=== PATIENT | male | born 1950 | race Caucasian/White ===

== ENCOUNTER 2022-04-09 08:48 | Outpatient (CLI) | payer MEDICARE, MEDICAID, SELFPAY ==
--- NOTE | ~2022-04-09 | PE_ITS ---
EXAMINATION: PET skull to mid thigh DATE: 04/09/2022 10:27 INDICATION: Multiple lung nodules TECHNIQUE: Blood glucose level was 118 mg/dL. 11.748 mCi of 18-fluorodeoxyglucose (18-FDG) was admini stered i.v. Low dose computed tomography (CT) images were acquired from the base of the brain to the proximal thighs for attenuation correction and anatomic localization. Positron emission tomography (P ET) images were acquired in the same distribution beginning 55 minutes after injection. Images includ ing fused PET/CT images were reconstructed in axial, coronal, and sagittal planes. Automated exposure control technique was employed. The dose-length product was 801.50mGy-cm. COMPARISON: None FINDINGS: Head/neck: There is diffuse increased mucosal FDG uptake at the periphery of the completely opacified left maxil eleno sinus consistent with likely acute sinusitis. Small focus of prominent FDG uptake with maximal S UV of 9.8 at the posterior most left maxillary molar with suggestion of an associated dental caries. There is increased activity in the oral and nasal cavities, palatine tonsils, laryngeal muscles and o cular muscles without CT correlate, likely physiologic. No pathologically enlarged cervical lymphaden opathy or other suspicious foci of increased FDG uptake in the visualized head or neck. Chest: 6 mm nodule at the junction of the right major and minor fissures, potentially an intrafissural lymph node without corresponding FDG uptake. Additional 5 mm thin lenticular likely intrafissural lymph no de along the left major fissure also without evident FDG uptake. Mild lingular atelectasis at the cau radha aspect of the lingula. No other suspicious pulmonary nodules, pneumonia or pleural effusion. Hear t size is normal. No pericardial effusion. Thoracic aorta is normal in caliber. No pathologically enl arged or FDG avid thoracic lymphadenopathy. Abdomen/pelvis/proximal thighs: Physiologic renal accumulation and excretion of FDG activity in the kidneys, bladder and along portio ns of ureters. Normal degree and heterogenous pattern of increased uptake throughout the liver withou t radiologic correlate or dominant FDG avid lesion. The gallbladder, pancreas, spleen and bilateral a drenal glands are normal. Mild uptake scattered throughout the bowels without radiologic correlate, a lso likely physiologic. There are few scattered colonic diverticula without adjacent inflammatory christine nge to suggest diverticulitis. Normal appendix. Mild. Likely physiologic uptake associated with a gaston or supraumbilical ventral hernia mesh repair without evident associated abnormal nodular soft tissue. No other abnormal foci of increased FDG uptake or pathologically enlarged lymphadenopathy in the abd omen, pelvis or proximal thighs. Musculoskeletal: Mild likely synovial uptake at the bilateral acromioclavicular and glenohumeral joints. 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 No other suspicious lytic, blastic or FDG avid bone lesions. IMPRESSION: 1. No increased uptake associated with a couple 5-6 mm nodules along the left and right major fissure s most likely representing intrafissural lymph nodes. Although reassuring, sensitivity for FDG uptake is decreased for subcentimeter nodules and lateral malignant nodules demonstrated significantly incr eased FDG uptake. Recommend correlation with any prior outside imaging and 12 month follow-up low-dos e noncontrast chest CT. 2. Complete opacification of left maxillary sinus with prominent peripheral mucosal FDG uptake sugges ting acute sinusitis. 3. Increased uptake associated with a likely dental Dagmar at the posterior most left maxillary molar. Consider dental referral. Reviewed, dictated and finalized at location A.
[2022-04-09 09:09] LABS: Glucose Point of Care 118 mg/dl (65-105)
== END 2022-04-09 08:49 | disposition home or self-care (01) ==
PROVIDERS: PCP Family Medicine; Visit Provider Internal Medicine
DX: R91.8 Other nonspecific abnormal finding of lung field (principal)
CPT/HCPCS: 78815; A9552

== ENCOUNTER 2024-10-06 12:52 | Outpatient (CLI) | payer MEDICARE, MEDICAID, SELFPAY ==
--- OUTSIDE RECORDS SUMMARY | 2024-10-06 15:14 | XMS_ITS | CONTINUITY OF CARE DOCUMENT ---
Author Name kae pal Address Unknown Organization [facility] Address [address] [place] [address] Phone [phone] Care Team Providers Care Concession Attendant Name Role Phone Eliana Kenny MD Unavailable Jakob Arndt MD Unavailable Jakob Arndt MD Unavailable [phone] INSURANCE PROVIDERS Payer name Policy type / Coverage type [place] [employer] Medicaid 2 [id number] [facility] [id number]
--- OUTSIDE RECORDS SUMMARY | 2024-10-06 15:15 | XMS_ITS | Clinical Summary ---
Author Organization [facility] Address [address], [address] [address] Phone Care Team Providers Care Shark Biologist Name Role Phone Jhonatan Noble MD Primary Care Provider Medications polyethylene glycol (MIRALAX) Powder Mix the entire bottle with 64 oz of a clear liquid. Use as directed by the office for colonoscopy prep. 255 g 0 6 Active Social History Tobacco Use Types Packs/Day Years Used Date Smoking Tobacco: Never Assessed Sex and Gender Information Value Date Recorded Sex Assigned at Not on file Legal Sex Male 9:08 AM CDT Gender Identity Not on file Sexual Orientation Not on file Plan of Treatment Health Maintenance Due Date Last Done Comments Hepatitis C Virus (HCV) Screening 1950 TdaP Immunization 1950 Cologuard 2001 Immunochemical Fecal Occult Blood 2001 Pneumococcal Immunization (5 0+ years) (1 of 1 - PCV) 2001 Zoster Immunization (1 of 2) 2001 Influenza Immunization (#1) 2023 SARS-COV-2 Immunization ( season) 2023 Colonoscopy 01/31/2026 02/01/2016 Colorectal Cancer Screening 01/31/2026 Respiratory Syncytial Virus (RSV) Immunization (Adult) (1 - 1-dose 75+ series) 2026 Hepatitis B Immunization Aged Out No longer eligible based on patient's age to complete this topic Meningococcal Immunization (ACWY) Aged Out No longer eligible based on patient's age to complete this topic Rotavirus Immunization Aged Out No lo nger eligible based on patient's age to complete this topic Procedures Procedure Name Priority Date/Time Associated Diagnosis Comments COLONOSCOPY Routine 02/01/2016 from Last 3 Months or Most Recently Relevant to Health Maintenance Results * COLONOSCOPY (02/01/2016) us Jhonatan Noble MD PROCEDURE/MINOR SURGICAL ORD ERABLES Final Result from Last 3 Months or Most Recently Relevant to Health Maintenance Care Teams Shark Biologist Relationship Specialty Start Date End Date Jhonatan Noble MD [address] [place] [id number] PCP - General Family Medicine 02/02/16
--- OUTSIDE RECORDS SUMMARY | 2024-10-06 15:15 | XMS_ITS | Data Portability ---
Author Organization [facility] [employer], Main Office Address [address] [place] [address] Care Team Providers Care Commercial Loan Assistant Name Role Phone LISA HERNADEZ Primary Care Provider LISA HERNADEZ Referring Provider [phone] Assessment No assessment recorded. Plan of Treatment Reminders Order Date Submit Date Provider Last Modified By Organization Details Last Modified Time Details Appointments Any 15 2024 01:30P Yang Hernadez MD Not available Not available Not available Lab PSA, serum or plasma 2024 025 [facility] (Lab), [address] [place], [address], 10/05/2024 13:18:03 CBC w/ auto diff 2024 025 [facility] (Lab), [address] [place], [address], 10/05/2024 13:18:03 CMP, serum or plasma 2024 025 [facility] (Lab), [address] [place], [address], 10/05/2024 13:18:03 lipid panel, serum 2024 025 [facility] (Lab), [address] [place], [address], 10/05/2024 13:18:02 CMP, serum or plasma 2023 024 [facility] (Lab), [address] [place], [address], 11/24/2023 19:34:49 lipid panel, serum 2023 024 [facility] (Lab), [address] [place], [address], 11/24/2023 19:34:53 CBC w/ auto diff 2023 024 [facility] (Lab), [address] [place], [address], 11/24/2023 19:31:05 PSA, serum or plasma 2023 024 [facility] (Lab), [address] [place], [address], 07/16/2023 23:48:02 CBC w/ auto diff 2023 024 [facility] (Lab), [address] [place], [address], 07/16/2023 19:43:51 Referral None recorded. Procedures upper endoscopy procedure (EGD) (PROC) - Please call patient to schedule an appointme nt. Thank you. 2024 025 [facility], [address], [address], [place], [address], 09/30/2024 11:05:22 upper endoscopy procedure (EGD) (PROC) 2023 024 kristie Valenzuela MD, [address] [facility], [address], [place], [address], 12/22/2023 08:09:41 upper endoscopy procedure (EGD) (PROC) 2023 024 kristie Valenzuela MD, [address], [facility] [address], [place], [address], 08/13/2023 07:57:40 Surgeries None recorded. Imaging PFT, complete - Please call patient to schedule. [address] (Resp Services), [address] [place] [address] [address], [address], 09/27/2024 17:22:24 LDCT, chest, for lung cancer screening - NO auth required 2023 024 [facility] ([facility]), [address] [place], [address], 12/02/2023 11:00:51 LDCT, chest, for lung cancer screening 2023 024 Not available 05/25/2024 09:42:12 LDCT, chest, for lung cancer screening [address] [facility] ([facility] Scheduling), [address] [place], [address], 01/19/2024 15:52:30 Medication Orders Breztri Aerospher e 160 mcg-9mcg- 4.8mcg/ac tuation HFA aerosol inhaler 2024 025 [facility] [address] In [facility], [address] [place] [address], [address], 09/23/2024 15:22:12 albuterol sulfate HFA 90 mcg/actua tion aerosol inhaler 2024 025 [facility] [address] In [facility], [address] [place] [address], [address], 09/23/2024 15:22:11 Bre[employer]tri Aerosp[employer] 160 mcg-9mcg- 4.8mcg/ac tuation HFA aerosol inhaler 2024 025 [facility] [address] In [facility], [address] [place] [address], [address], 05/25/2024 12:33:14 albuterol sulfate HFA 90 mcg/actua tion aerosol inhaler 2024 025 [facility] [address], [address], 05/25/2024 12:33:14 metoprolo l succinate ER 50 mg tablet,ex tended release 24 hr 2022 023 [facility] [address], [address], 03/17/2023 10:21:17 bupropion HCl XL 150 mg 24 hr tablet, extended release 2022 023 [facility] [address], [address], 03/17/2023 10:21:17 Patient TargetsNo targets recorded. Patient Instructions Encounter Date Encounter Id Patient Instructions Last Modified By Organization Details Last Modified Time 11/24/2023 [id number] dementia rating scale-2* [id number] Not available 11/24/2023 14:07:12 alcohol misuse* Not available 11/24/2023 17:00:18 depression screening* Not available 11/24/2023 17:00:19 multi-dimensiona l health assessment questionnaire* Not available 11/24/2023 17:00:18 advance care planning: care instructions Not available 11/24/2023 17:00:18 advance directiv es: care instructions Not available 11/24/2023 17:00:18 [place] Advance Directives Not available 11/24/2023 17:00:19 Personalized [facility] lt Plan and Screening Recommendations Advance Directives - Do you have one? No You have indicated that you are capable of preparing your advance care directive Advance Directives - Do we have your advance directive on file in your health record? No, please bring in a copy at your earliest convenience Primary Prevention/Interven tion (prevents or decreases the chance of common diseases from occurring) Smoking Risk: Smoker Continue to consider stopping smoking and call if we can assist you Alcohol Misuse Screening: Negative Weight: Overweight try to lose 10% of your body weight Physical activity: Need more exercise/physical activity minimum of 10-20 minutes of activity that causes mild breathlessness/day Nutrition: Average Refer to attached handout Heart-Healthy Diet: After Your Visit Fall Risk (screened today): Low Refer to attached handout Preventing Falls: After your Visit Vaccines Pneumococcal: No further needed Influenza: Your next one in the fall of this year Chronic Disease Risks Stroke: 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 Colon Cancer Screening: Colonoscopy Date Screening Last Performed: states done in last 5 years Eye Disease Screening: Recommended today Dementia Risk: Low I have no recommendations Depression Screening: Negative [id number] Not available 11/24/2023 14:20:37 09/23/2024 [id number] complete PFT* - Please call patient to schedule. TONY [id number] per payor portal, ref #[id number]. ATHENAFAX Not available 09/27/2024 13:20:38 Reason for Referral None Reported. Results Created Date Observation Date Name Description Value Unit Range Abnormal Flag Note LastModifiedBy Organization Detail LastModifiedTime 07/16/19 24 07/16/2023 CBC/C OMPLE TE BLD COUNT W/DIF F white blood cells 6.1 x10'3 /uL 4.2-10 .8 Not Available [facility] (Lab) [address] [place], [address], 07/16/2023 19:43:51 07/16/19 24 07/16/2023 CBC/C OMPLE TE BLD COUNT W/DIF F red blood cells 4.81 x10'6 /uL 4.10-5 .80 Not Available [facility] (Lab) [address] [place], [address], 07/16/2023 19:43:51 07/16/19 24 07/16/2023 CBC/C OMPLE TE BLD COUNT W/DIF F hemoglobin 14.9 g/dL 13.2-1 7.0 Not Available [facility] (Lab) [address] [place], [address], 07/16/2023 19:43:51 07/16/19 24 07/16/2023 CBC/C OMPLE TE BLD COUNT W/DIF F hematocrit 43.2 % 39.3-5 0.0 Not Available [facility] (Lab) [address] [place], [address], 07/16/2023 19:43:51 07/16/19 24 07/16/2023 CBC/C OMPLE TE BLD COUNT W/DIF F mean red cell volume 89.8 fL 80.0-9 7.0 Not Available [facility] (Lab) [address] [place], [address], 07/16/2023 19:43:51 07/16/19 24 07/16/2023 CBC/C OMPLE TE BLD COUNT W/DIF F mean red cell hemoglobin 31.0 pg 27.0-3 3.0 Not Available [facility] (Lab) [address] [place], [address], 07/16/2023 19:43:51 07/16/19 24 07/16/2023 CBC/C OMPLE TE BLD COUNT W/DIF F mean RBC HGB concentratio n 34.5 g/dL 31.0-3 6.0 Not Available [facility] (Lab) [address] [place], [address], 07/16/2023 19:43:51 07/16/19 24 07/16/2023 CBC/C OMPLE TE BLD COUNT W/DIF F red cell distribution width 13.6 % 11.8-1 5.5 Not Available [facility] (Lab) [address] [place], [address], 07/16/2023 19:43:51 07/16/19 24 07/16/2023 CBC/C OMPLE TE BLD COUNT W/DIF F platelets 155 x10'3 /uL 150-40 0 Not Available [facility] (Lab) [address] [place], [address], 07/16/2023 19:43:51 07/16/19 24 07/16/2023 CBC/C OMPLE TE BLD COUNT W/DIF F mean platelet volume 9.6 fL 9.0-12 .4 Not Available [facility] (Lab) [address] [place], [address], 07/16/2023 19:43:51 07/16/19 24 07/16/2023 CBC/C OMPLE TE BLD COUNT W/DIF F neutrophils 56.9 % 39.0-7 2.0 Not Available [facility] (Lab) [address] [place], [address], 07/16/2023 19:43:51 07/16/19 24 07/16/2023 CBC/C OMPLE TE BLD COUNT W/DIF F lymphocytes 31.1 % 16.0-4 7.0 Not Available [facility] (Lab) [address] [place], [address], 07/16/2023 19:43:51 07/16/19 24 07/16/2023 CBC/C OMPLE TE BLD COUNT W/DIF F monocytes 8.7 % 5.0-12 .0 Not Available [facility] (Lab) [address] [place], [address], 07/16/2023 19:43:51 07/16/19 24 07/16/2023 CBC/C OMPLE TE BLD COUNT W/DIF F eosinophils 2.0 % 1.0-7. 0 Not Available [facility] (Lab) [address] [place], [address], 07/16/2023 19:43:51 07/16/19 24 07/16/2023 CBC/C OMPLE TE BLD COUNT W/DIF F basophils 1.0 % 0.0-2. 0 Not Available [facility] (Lab) [address] [place], [address], 07/16/2023 19:43:51 07/16/19 24 07/16/2023 CBC/C OMPLE TE BLD COUNT W/DIF F immature granulocytes 0.3 % 0.00-0 .50 Not Available [facility] (Lab) [address] [place], [address], 07/16/2023 19:43:51 07/16/19 24 07/16/2023 CBC/C OMPLE TE BLD COUNT W/DIF F neutrophils, absolute count 3.47 x10'3 /uL 1.5-8. 0 Not Available [facility] (Lab) [address] [place], [address], 07/16/2023 19:43:51 07/16/19 24 07/16/2023 CBC/C OMPLE TE BLD COUNT W/DIF F lymphocytes, absolute count 1.90 x10'3 /uL 1.07-3 .43 Not Available [facility] (Lab) [address] [place], [address], 07/16/2023 19:43:51 07/16/19 24 07/16/2023 CBC/C OMPLE TE BLD COUNT W/DIF F monocytes, absolute count 0.53 x10'3 /uL 0.29-0 .99 Not Available [facility] (Lab) [address] [place], [address], 07/16/2023 19:43:51 07/16/19 24 07/16/2023 CBC/C OMPLE TE BLD COUNT W/DIF F eosinophils, absolute count 0.12 x10'3 /uL 0.02-0 .53 Not Available [facility] (Lab) [address] [place], [address], 07/16/2023 19:43:51 07/16/19 24 07/16/2023 CBC/C OMPLE TE BLD COUNT W/DIF F basophils, absolute count 0.06 x10'3 /uL 0.01-0 .08 Not Available [facility] (Lab) [address] [place], [address], 07/16/2023 19:43:51 07/16/19 24 07/16/2023 CBC/C OMPLE TE BLD COUNT W/DIF F immature granulocytes ,absolute 0.02 x10'3 /uL 0.00-0 .05 Not Available [facility] (Lab) [address] [place], [address], 07/16/2023 19:43:51 07/16/19 24 07/16/2023 CBC/C OMPLE TE BLD COUNT W/DIF F nucleated red blood cells 0.0 % -0 Not Available [facility] (Lab) [address] [place], [address], 07/16/2023 19:43:51 07/16/19 24 07/16/2023 CBC/C OMPLE TE BLD COUNT W/DIF F NRBC# 0.00 x10'3 /uL Not Available [facility] (Lab) [address] [place], [address], 07/16/2023 19:43:51 07/16/19 24 07/16/2023 PSA, TOTAL PSA, total 1.25 NG/mL 0.00-4 .00 Not Available [facility] (Lab) [address] [place], [address], 07/16/2023 20:49:04 11/24/19 24 11/24/2023 CBC/C OMPLE TE BLD COUNT W/DIF F white blood cells 7.0 x10'3 /uL 4.2-10 .8 Not Available [facility] (Lab) [address] [place], [address], 11/24/2023 19:31:05 11/24/19 24 11/24/2023 CBC/C OMPLE TE BLD COUNT W/DIF F red blood cells 4.84 x10'6 /uL 4.10-5 .80 Not Available [facility] (Lab) [address] [place], [address], 11/24/2023 19:31:05 11/24/19 24 11/24/2023 CBC/C OMPLE TE BLD COUNT W/DIF F hemoglobin 15.0 g/dL 13.2-1 7.0 Not Available [facility] (Lab) [address] [place], [address], 11/24/2023 19:31:05 11/24/19 24 11/24/2023 CBC/C OMPLE TE BLD COUNT W/DIF F hematocrit 44.5 % 39.3-5 0.0 Not Available [facility] (Lab) [address] [place], [address], 11/24/2023 19:31:05 11/24/19 24 11/24/2023 CBC/C OMPLE TE BLD COUNT W/DIF F mean red cell volume 91.9 fL 80.0-9 7.0 Not Available [facility] (Lab) [address] [place], [address], 11/24/2023 19:31:05 11/24/19 24 11/24/2023 CBC/C OMPLE TE BLD COUNT W/DIF F mean red cell hemoglobin 31.0 pg 27.0-3 3.0 Not Available [facility] (Lab) [address] [place], [address], 11/24/2023 19:31:05 11/24/19 24 11/24/2023 CBC/C OMPLE TE BLD COUNT W/DIF F mean RBC HGB concentratio n 33.7 g/dL 31.0-3 6.0 Not Available [facility] (Lab) [address] [place], [address], 11/24/2023 19:31:05 11/24/19 24 11/24/2023 CBC/C OMPLE TE BLD COUNT W/DIF F red cell distribution width 14.6 % 11.8-1 5.5 Not Available [facility] (Lab) [address] [place], [address], 11/24/2023 19:31:05 11/24/19 24 11/24/2023 CBC/C OMPLE TE BLD COUNT W/DIF F platelets 166 x10'3 /uL 150-40 0 Not Available [facility] (Lab) [address] [place], [address], 11/24/2023 19:31:05 11/24/19 24 11/24/2023 CBC/C OMPLE TE BLD COUNT W/DIF F mean platelet volume 9.9 fL 9.0-12 .4 Not Available [facility] (Lab) [address] [place], [address], 11/24/2023 19:31:05 11/24/19 24 11/24/2023 CBC/C OMPLE TE BLD COUNT W/DIF F neutrophils 63.6 % 39.0-7 2.0 Not Available [facility] (Lab) [address] [place], [address], 11/24/2023 19:31:05 11/24/19 24 11/24/2023 CBC/C OMPLE TE BLD COUNT W/DIF F lymphocytes 24.2 % 16.0-4 7.0 Not Available [facility] (Lab) [address] [place], [address], 11/24/2023 19:31:05 07/29/20 24 11/24/2023 CBC/C OMPLE TE BLD COUNT W/DIF F monocytes 9.5 % 5.0-12 .0 Not Available [facility] (Lab) [address] [place], [address], 11/24/2023 19:31:05 11/24/19 24 11/24/2023 CBC/C OMPLE TE BLD COUNT W/DIF F eosinophils 1.6 % 1.0-7. 0 Not Available [facility] (Lab) [address] [place], [address], 11/24/2023 19:31:05 11/24/1911/24/2023 CBC/C OMPLE TE BLD COUNT W/DIF F basophils 1.0 % 0.0-2. 0 Not Available [facility] (Lab) [address] [place], [address], 11/24/2023 19:31:05 11/24/1911/24/2023 CBC/C OMPLE TE BLD COUNT W/DIF F immature granulocytes 0.1 % 0.00-0 .50 Not Available [facility] (Lab) [address] [place], [address], 11/24/2023 19:31:05 11/24/19 24 11/24/2023 CBC/C OMPLE TE BLD COUNT W/DIF F neutrophils, absolute count 4.46 x10'3 /uL 1.5-8. 0 Not Available [facility] (Lab) [address] [place], [address], 11/24/2023 19:31:05 11/24/19 24 11/24/2023 CBC/C OMPLE TE BLD COUNT W/DIF F lymphocytes, absolute count 1.70 x10'3 /uL 1.07-3 .43 Not Available [facility] (Lab) [address] [place], [address], 11/24/2023 19:31:05 11/24/19 24 11/24/2023 CBC/C OMPLE TE BLD COUNT W/DIF F monocytes, absolute count 0.67 x10'3 /uL 0.29-0 .99 Not Available [facility] (Lab) [address] [place], [address], 11/24/2023 19:31:05 11/24/19 24 11/24/2023 CBC/C OMPLE TE BLD COUNT W/DIF F eosinophils, absolute count 0.11 x10'3 /uL 0.02-0 .53 Not Available [facility] (Lab) [address] [place], [address], 11/24/2023 19:31:05 11/24/19 24 11/24/2023 CBC/C OMPLE TE BLD COUNT W/DIF F basophils, absolute count 0.07 x10'3 /uL 0.01-0 .08 Not Available [facility] (Lab) [address] [place], [address], 11/24/2023 19:31:05 11/24/19 24 11/24/2023 CBC/C OMPLE TE BLD COUNT W/DIF F immature granulocytes ,absolute 0.01 x10'3 /uL 0.00-0 .05 Not Available [facility] (Lab) [address] [place], [address], 11/24/2023 19:31:05 11/24/19 24 11/24/2023 CBC/C OMPLE TE BLD COUNT W/DIF F nucleated red blood cells 0.0 % -0 Not Available [facility] (Lab) [address] [place], [address], 11/24/2023 19:31:05 11/24/19 24 11/24/2023 CBC/C OMPLE TE BLD COUNT W/DIF F NRBC# 0.00 x10'3 /uL Not Available [facility] (Lab) [address] [place], [address], 11/24/2023 19:31:05 11/24/19 24 11/24/2023 COMPR EHENS BERTA METAB OLIC PANEL sodium 137 mmol/ L 137-14 5 Not Available [facility] (Lab) [address] [place], [address], 11/24/2023 19:34:49 11/24/19 24 11/24/2023 COMPR EHENS BERTA METAB OLIC PANEL potassium 4.1 mmol/ L 3.5-5. 1 Not Available [facility] (Lab) [address] [place], [address], 11/24/2023 19:34:49 11/24/19 24 11/24/2023 COMPR EHENS BERTA METAB OLIC PANEL chloride 110 mmol/ L 98-107 high Not Available [facility] (Lab) [address] [place], [address], 11/24/2023 19:34:49 11/24/19 24 11/24/2023 COMPR EHENS BERTA METAB OLIC PANEL carbon dioxide 24 mmol/ L 22-30 Not Available [facility] (Lab) [address] [place], [address], 11/24/2023 19:34:49 11/24/19 24 11/24/2023 COMPR EHENS BERTA METAB OLIC PANEL anion gap 7.1 mmol/ L 14-22 low Not Available [facility] (Lab) [address] [place], [address], 11/24/2023 19:34:49 11/24/19 24 11/24/2023 COMPR EHENS BERTA METAB OLIC PANEL glucose 93 mg/dL 70-99 Not Available [facility] (Lab) [address] [place], [address], 11/24/2023 19:34:49 11/24/19 24 11/24/2023 COMPR EHENS BERTA METAB OLIC PANEL BUN 9 mg/dL 8-19 Not Available [facility] (Lab) [address] [place], [address], 11/24/2023 19:34:49 11/24/19 24 11/24/2023 COMPR EHENS BERTA METAB OLIC PANEL creatinine 0.90 mg/dL 0.66-1 .25 Not Available [facility] (Lab) [address] [place], [address], 11/24/2023 19:34:49 11/24/19 24 11/24/2023 COMPR EHENS BERTA METAB OLIC PANEL GFR >60 Refer ence Range : [place] ge GFR Healt hy Adult : >60 mL/mi n/1.7 3 m2 Chron ic Kidne y Disea se: 15-60 mL/mi n/1.7 3 m2 Kidne y Failu re: <15/m L/min /1.73 m2 www.n iddk. nih.g ov The MDRD study equat ion has not been valid ated in child jennifer <18 years of age; pregn ant women ; the elder ly >85 years of age; or in some racia l or ethni c subgr oups, such as [employer]. Outsi de the valid ated gina eters , estim ated GFR is less accur ate, requi ring clini phu judgm ent on a case- by-ca se basis . Clini phu inter preta tion for other races and ages must be made by the clini jose l. The MDRD study equat ion has not been valid ated for the evalu ation of serum creat inine relat ed to nutri luz l statu s or medic ation usage . For perso ns <18 years of age, a pedia tric GFR calcu lator is avail able on the F websi te: https ://citlaly biggs.o jason/pr ofess ional s/kdo qi/gf r_cal culat or Not Available [facility] (Lab) [address] [place], [address], 11/24/2023 19:34:49 11/24/19 24 11/24/2023 COMPR EHENS BERTA METAB OLIC PANEL alkaline phosphatase 108 U/L 38-126 Not Available [facility] (Lab) [address] [place], [address], 11/24/2023 19:34:49 11/24/19 24 11/24/2023 COMPR EHENS BERTA METAB OLIC PANEL alanine aminotransfe rase 26 U/L 0-50 Not Available [facility] (Lab) [address] [place], [address], 11/24/2023 19:34:49 11/24/19 24 11/24/2023 COMPR EHENS BERTA METAB OLIC PANEL aspartate aminotransfe rase 27 U/L 15-46 Not Available [facility] (Lab) [address] [place], [address], 11/24/2023 19:34:49 11/24/19 24 11/24/2023 COMPR EHENS BERTA METAB OLIC PANEL bilirubin, total 1.10 mg/dL 0.20-1 .30 Not Available [facility] (Lab) [address] [place], [address], 11/24/2023 19:34:49 11/24/19 24 11/24/2023 COMPR EHENS BERTA METAB OLIC PANEL calcium 9.1 mg/dL 8.4-10 .2 Not Available [facility] (Lab) [address] [place], [address], 11/24/2023 19:34:49 11/24/19 24 11/24/2023 COMPR EHENS BERTA METAB OLIC PANEL total protein 7.1 g/dL 6.3-8. 2 Not Available [facility] (Lab) [address] [place], [address], 11/24/2023 19:34:49 11/24/19 24 11/24/2023 COMPR EHENS BERTA METAB OLIC PANEL albumin 4.0 g/dL 3.0-4. 4 Not Available [facility] (Lab) [address] [place], [address], 11/24/2023 19:34:49 11/24/19 24 11/24/2023 COMPR EHENS BERTA METAB OLIC PANEL globulin 3.1 g/dL 2.6-4. 2 Not Available [facility] (Lab) [address] [place], [address], 11/24/2023 19:34:49 11/24/19 24 11/24/2023 COMPR EHENS BERTA METAB OLIC PANEL A/G ratio 1.3 ratio 1.0-2. 0 Not Available [facility] (Lab) [address] [place], [address], 11/24/2023 19:34:49 11/24/19 24 11/24/2023 LIPID PANEL cholesterol 184 mg/dL 140-19 9 NIH ABELARDO NSUS RECOM MENDA TION FOR POLINA STERO L: ADULT CHILD LOW RISK: <200 <170 BORDE RLINE : <200- 239 ----- HIGH RISK: >240 >200 Not Available [facility] (Lab) [address] [place], [address], 11/24/2023 19:34:53 11/24/19 24 11/24/2023 LIPID PANEL triglyceride s 195 mg/dL 0-150 high NIH ABELARDO NSUS REPOR T RECOM MENDA TION FOR TRIGL YCERI TEJAS: ADULT CHILD LOW RISK: <150 ----- BODER LINE: 150-1 99 ----- HIGH RISK: >200 ----- Not Available [facility] (Lab) [address] [place], [address], 11/24/2023 19:34:53 11/24/19 24 11/24/2023 LIPID PANEL HDL cholesterol 57 mg/dL 40- Not Available [facility] (Lab) [address] [place], [address], 11/24/2023 19:34:53 11/24/19 24 11/24/2023 LIPID PANEL LDL cholesterol, calculated 88 mg/dL 0-130 NIH ABELARDO NSUS REPOR T RECOM MENDA TIONS FOR LDL: ADULT CHILD LOW RISK <130 <110 (OPTI MAL LDL) <100 ----- BORDE RLINE : 130-1 59 ----- HIGH RISK: >160 >130 A TRIGL YCERI DE RESUL T >400 INVAL IDATE S THE CALCU LATIO N FOR LDL FRACT IONAT ION - THE LDL RESUL T WILL NOT BE REPOR PATRICK. Not Available [facility] (Lab) [address] [place], [address], 11/24/2023 19:34:53 12/02/19 24 12/02/2023 LDCT, chest , for lung cance r scree [facility] [address] [place] [address] Patien t Name: STEVE WASHINGTON Access ion #: [id number] Sex: M : 1950 8 Dictat ed By: Ravinder Dunn ms Attend ing Physic joon: DAMARIS HERNADEZ Orderi Physic joon: DAMARIS HERNADEZ Exam Date: 2023 08:14 AM Exam Name: CT LOW DOSE CNCR SCREEN ING Admitt ing Diagno sis(es ): CT Chest withou t intrav enous contra st INDICA TION: 73 years old, Male; nicoti ne depend ence. TECHNI QUE: Multid etecto r spiral CT of the chest was perfor med from the lung apices to the upper abdome n utiliz ing axial images . Zapata l and sagitt al multip lanar reform ats were perfor med. Radiat ion Dose : 1. Chest: CTDI volume is 2.6 mGy. Dose-l ength produc t is 112.8 mGy*cm The dose indica tors for CT are the volume Comput ed Tomogr aphy (CT) Dose Index (CTDIv ol) and the Dose Length Produc t (DLP), and are measur ed in units of mGy and mGy-cm , respec tively . These indica tors are not patien t dose, but values genera patrick from the CT scanne r acquis ition factor s. The report includ es radiat ion exposu re data for exposu res receiv ed during this examin ation. Compar rhonda: CT LOW DOSE CNCR SCREEN ING on DOS: Findin gs: Lower neck: Unrema rkable thyroi d Lungs: 6 mm right lower lobe perifi ssural nodule ( series 204, image 23 ) is stable . 5 mm perifi ssural nodule in the left lower lobe ( series 204, image 183) in retros pect also stable . 3 mm refrigeration operator ior medial right upper lobe pulmon gibran nodule (serie s 204, image 88) is unchan ged. No eviden ce of new pulmon gibran nodule s. Pleura : No pleura l effusi ons. No pneumo thorax Page 1 [facility] [address] [place] [address] Patien t Name: STEVE WASHINGTON Access ion #: [id number] Sex: M : 1950 9 Dictat ed By: Ravinder Dunn ms Attend ing Physic joon: SATYA FERNANDEZ [facility] Physic joon: DAMARIS HERNADEZ Exam Date: 2023 08:14 AM Exam Name: CT LOW DOSE CNCR SCREEN ING Admitt ing Diagno sis(es ): Heart/ Vascul ar Struct ures: The heart is normal in size. No perica rdial effusi on. There are zapata ry artery calcif icatio ns. Normal calibe r thorac ic aorta. The main pulmon gibran artery is normal in calibe r. Lymph Nodes: No adenop athy Muscul oskele linda: No fractu re or suspic ious bone lesion s. Body wall: Unrema rkable Upper abdome n: Unrema rkable . Chest wall: Bilate ral gyneco mastia . IMPRES CAROLINE: 1. Stable pulmon gibran nodule s as compar ed to chest CT from 2021. 2. Zapata ry artery calcif icatio ns. Lung-R ADS: Catego ry 2: Recomm endati on: Contin ue annual screen ing with LDCT https: //[email or web address] s/RADS /Lung- RADS/L umberto-RA 2.pdf Electr onical ly Signed by: Ravinder Dunn ms at 2023 09:58: 38 AM Page 2 [email or web address] [facility] (Imaging) [address] [place], [address], 12/10/2023 15:26:31 Result Notes None recorded. 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 548245761 Active 2021 Not Available [employer] 3 05:13:44 Adult health examinat ion Active 2020 Lisa Hernadez MD [address] [facility], [place], [address] , [facility] [employer] [facility] 4 10:20:01 Chest pain 19787329 Completed 201612/19/2017 Not Available [employer] 3 05:13:44 Hypertri glycerid emia 172202804 Active 2020 Not Available [employer] 3 05:13:44 Fisher' s esophagu s 146449103 Active 2016 Not Available [employer] 3 05:13:45 Screenin g for disorder Completed 202111/02/2021 Not Available [employer] 3 05:13:45 Depressi ve disorder 72588543 Active 2017 Not Available [facility] 3 05:13:45 Solitary nodule of lung 476642091 Active 2016 LDCT 12/12, small, benign Not Available [facility] 3 05:13:45 Screenin g for malignan t neoplasm of prostate Completed 202111/02/2021 Not Available [facility] 3 05:13:45 Multiple nodules of lung 945483051 Active 2021 PET showed benign nodules Not Available [facility] 3 05:13:45 Hyperlip idemia 32952357 Active 2016 Not Available [facility] 3 05:13:45 Smoker 38632220 Active 2016 Not Available [facility] 3 05:13:45 Nodule of lung 099364662 Completed 202105/30/2022 Not Available [facility] 3 05:13:45 Skin lesion 31695550 Completed 202111/02/2021 Not Available [facility] 3 05:13:45 Essentia l hyperten caroline 00042005 Active 2023 Lisa Hernadez MD [address], [address], [place], [address] , [employer] [facility] [employer] [facility] 4 10:22:08 Nicotine dependen ce 26872543 Active 2023 Maribeth singer, ISRA null, [employer] [facility] [employer] [facility] 4 12:11:39 Dyspnea 524646367 Active 2024 Lisa Hernadez MD [address], [address], [place], [address] , [employer] [facility] [employer] [facility] 5 12:27:07 Chronic obstruct berta pulmonar y disease 73600979 Active 2024 Lisa Hernadez MD [address], [address], [place], [address] , [facility] [employer] [facility] [employer] [facility] 5 12:27:21 Disorder of prostate 01098328 Active 2024 Maribethamirah singer, ISRA null, [facility] [employer] [facility] 5 15:10:50 Problem Notes None recorded. Procedures Surgical History Date Name Laterality Status Provider Name and Address Organization Details Recorded Time 4 Medicare Wellness CPT Code, subsequent completed Alessia Villegas RN [facility] 11/24/2023 12:40:31 4 Advanced Care Planning completed Alessia Villegas RN [facility] 11/24/2023 13:02:29 3 Medicare Wellness CPT Code, subsequent completed Lubna Dillard RN [facility] [employer] [facility] 07/15/2022 10:24:43 Knee arthroscopy/tidwell rgery completed Not Available [facility] 06/26/2022 05:05:22 Nsl/sins ndsc srg nsl hemrrg completed Not Available [facility] 06/26/2022 05:05:22 Unlisted procedure shoulder completed Not Available [facility] 06/26/2022 05:05:22 Hernia Surgery completed Not Available [facility] 06/26/2022 05:05:22 Imaging Results None recorded. Procedure Notes None recorded. Medical Equipment None Reported. Allergies No known drug allergies Medications Name Sig Start Date Stop Date Status Note LastModified by Organization Details LastModified Time amoxicillin 500 mg capsule TAKE 1 CAPSULE BY MOUTH FOUR TIMES A DAY UNTIL FINISHED active Not Available Not Available No t Available prednisone 10 mg tablet take 5q6mpeo, 0h1zfty, 7s6fevq, 5k5debi active Not Available Not Available No t Available atorvastati n 20 mg tablet 09/02 completed Not Available Not Available Not Available tizanidine 4 mg tablet Take 1 tablet every 8 hours by oral route. active Not Available Not Available No t Available metoprolol succinate ER 50 mg tablet,exte nded release 24 hr TAKE 1 TABLET BY MOUTH EVERY DAY active Not Available Not Available No t Available acetaminoph en 300 mg-codeine 30 mg tablet TAKE 1 TABLET BY MOUTH FOUR TIMES A DAY NEEDED active Not Available Not Available No t Available tramadol 50 mg tablet 08/28 completed Not Available Not Available Not Available citalopram 20 mg tablet Take 1 tablet every day by oral route at bedtime. active Not Available Not Available No t Available lorazepam 0.5 mg tablet Take 1 tablet twice a day by oral route as needed. 02/20 completed Not Available Not Available Not Available tamsulosin 0.4 mg capsule TAKE 1 CAPSULE BY MOUTH EVERY DAY active Not Available Not Available No t Available pantoprazol e 40 mg tablet,felicity yed release TAKE 1 TABLET BY MOUTH EVERY DAY active Not Available Not Available No t Available diclofenac sodium 75 mg tablet,felicity yed release Take 1 tablet twice a day by oral route. 03/11 completed Not Available Not Available Not Available gabapentin 100 mg capsule Take 1 capsule 3 times a day by oral route. active Not Available Not Available No t Available albuterol sulfate HFA 90 mcg/actuati on aerosol inhaler INHALE 2 PUFFS BY MOUTH EVERY 6 TO 8 HOURS NEEDED active Not Available Not Available No t Available finasteride 5 mg tablet 08/28 completed Not Available Not Available Not Available rosuvastati n 40 mg tablet TAKE 1 TABLET BY MOUTH EVERY DAY active Not Available Not Available No t Available bupropion HCl XL 150 mg 24 hr tablet, extended release TAKE 1 TABLET BY MOUTH EVERYDAY AT BEDTIME active Not Available Not Available No t Available Breztri Aerosphere 160 mcg-9mcg-4. 8mcg/actuat ion HFA aerosol inhaler INHALE 2 PUFFS TWICE A DAY active Not Available Not Available No t Available Vitals Date Recorded Body height Body mass index (BMI) Body weight Body temperature Heart rate Oxygen saturation Oxygen saturation in Arterial blood by Pulse oximetry Systolic blood pressure Diastolic blood pressure Provider Name and Address Organization Details Last Updated DateTime 5 170.18 cm 33.4 kg/m2 53450.1 7 g 97.3 [degF] 87 /min 97 % 97 % 120 mm[Hg] 74 mm[Hg] ISRA Hernandez [place] - [facility] [employer] [facility] 5 12:17:17 Date Recorded Body height Body mass index (BMI) Body weight Body temperature Heart rate Respiratory rate Oxygen saturation Oxygen saturation in Arterial blood by Pulse oximetry Systolic blood pressure Diastolic blood pressure Provider Name and Address Organization Details Last Updated DateTime 4 170.18 cm 33 kg/m2 13877.9 9 g 97.3 [degF] 76 /min 16 /min 99 % 99 % 124 mm[Hg] 88 mm[Hg] Stefania June MA [facility] [employer] [facility] 4 09:50:24 Date Recorded Body height Body mass index (BMI) Body weight Body temperature Heart rate Oxygen saturation Oxygen saturation in Arterial blood by Pulse oximetry Systolic blood pressure Diastolic blood pressure Provider Name and Address Organization Details Last Updated DateTime 5 170.18 cm 32.9 kg/m2 74670.4 g 97.3 [degF] 78 /min 96 % 96 % 122 mm[Hg] 82 mm[Hg] Maribeth navarro [facility] [employer] [facility] [employer] [facility] 5 15:07:20 Date Recorded Body height Body mass index (BMI) Body weight Body temperature Heart rate Oxygen saturation Oxygen saturation in Arterial blood by Pulse oximetry Systolic blood pressure Diastolic blood pressure Provider Name and Address Organization Details Last Updated DateTime 4 170.18 cm 33.7 kg/m2 47596.3 6 g 97.3 [degF] 84 /min 96 % 96 % 130 mm[Hg] 70 mm[Hg] Maribeth navarro [facility] [employer] [facility] [employer] [facility] 4 12:09:02 Date Recorded Body height Body mass index (BMI) Body weight Body temperature Heart rate Oxygen saturation Oxygen saturation in Arterial blood by Pulse oximetry Systolic blood pressure Diastolic blood pressure Provider Name and Address Organization Details Last Updated DateTime 3 170.18 cm 32.7 kg/m2 17490.8 1 g 97.6 [degF] 66 /min 97 % 97 % 120 mm[Hg] 60 mm[Hg] Remington Brown CMA [place] [employer] [facility] [employer] [facility] 3 10:00:16 Social History Question Answer Notes LastModified by Organization Details LastModified Time Tobacco Smoking Status Current Every Day Smoker Not Available [employer] 06/26/2022 05:04:17 Do You Have An Advance Directive? No [id number] Information not available 06/26/2022 Do You Wear A Helmet When Biking? No MIGRATION.[id number] Information not available 06/26/2022 Are You Blind Or Do You Have Difficulty Seeing? No MIGRATION.[id number] Information not available 06/26/2022 Is Blood Transfusion Acceptable In An Emergency? Yes [email or web address] Information not available 11/24/2023 What Is Your Level Of Caffeine Consumption? Moderate [email or web address].300026 Information not available 06/26/2022 How Much Tobacco Do You Chew? None MIGRATION.030 926136 Information not available 06/26/2022 In The 14 Days Before Symptom Onset, Have You Had Close Contact With A Laboratory-conf irmed COVID-19 While That Case Was Ill? No Not Applicable [email or web address] Information not available 11/24/2023 In The 14 Days Before Symptom Onset, Have You Had Close Contact With A Person Who Is Under Investigation For COVID-19 While That Person Was Ill? No Not Applicable [email or web address] Information not available 11/24/2023 Are You Deaf Or Do You Have Serious Difficulty Hearing? Yes States Had Received Hearing Aid, But Could Not Afford Batteries And So He Quit Wearing. Unsure Which Or If Both Ears He Has Difficulty With. [email or web address] Information not available 11/24/2023 What Type Of Diet Are You Following? REGULAR MIGRATION.300026 Information not available 06/26/2022 Which Illicit Or Recreational Drugs Have You Used? None MIGRATION.300026 Information not available 06/26/2022 What Is The Highest Grade Or Level Of School You Have Completed Or The Highest Degree You Have Received? KB30351-1 MIGRATION.22990603 Information not available 06/26/2022 How Many Days Of Moderate To Strenuous Exercise, Like A Brisk Walk, Did You Do In The Last 7 Days? 3 [email or web address] Information not available 11/24/2023 On Those Days That You Engage In Moderate To Strenuous Exercise, How Many Minutes, On Average, Do You Exercise? 30 [email or web address] Information not available 11/24/2023 Have There Been Any Changes To Your Family Or Social Situation? No MIGRATION.300 234934 Information not available 06/26/2022 What Is The Fluoride Status Of Your Home? Fluoridated MIGRATION.[id number] Information not available 06/26/2022 Are There Any Guns Present In Your Home? Yes [email or web address] Information not available 11/24/2023 Do You Use Insect Repellent Routinely? No MIGRATION.030 882226 Information not available 06/26/2022 Where Do You Live? SingleLevelHouse MIGRATION.0301 [id number] Information not available 06/26/2022 Presence Of Domestic Violence No [email or web address] Information not available 07/15/2022 Guns Present In The Home? Yes [email or web address] Information not available 11/24/2023 Are You Able To Care For Yourself? Yes Information not available 07/15/2022 Are You Blind Or Do Yo Have Difficulty Seeing? No [email or web address] Information not available 07/15/2022 Are You Deaf Or Do You Have Serious Difficulty Hearing? Yes Doesn't Wear Hearing Aid [email or web address] Information not available 07/15/2022 General Stress Level? Low [email or web address] Information not available 11/24/2023 Live Alone Of With Others? Alone [email or web address] Information not available 11/24/2023 Do You Have A Medical Power Of Customer Technical Services Manager? No [email or web address] Information not available 11/24/2023 What Was The Date Of Your Most Recent Tobacco Screening? 11/24/2023 [email or web address] Information not available 11/24/2023 How Many Children Do You Have? 1 [email or web address] Information not available 11/24/2023 What Is Your Current Pack Years? 30ormorepackyears [email or web address] Information not available 11/24/2023 Have You Ever Been Counseled For Unhealthy Alcohol Use? No MIGRATION.0301 [id number] Information not available 06/26/2022 Do You Have Any Pets? No MIGRATION.0301 421674 Information not available 06/26/2022 What Is Your Relationship Status? MIGRATION.0301 [id number] Information not available 06/26/2022 Do You Use Your Seat Belt Or Car Seat Routinely? Yes MIGRATION.0301 103505 Information not available 06/26/2022 Are You Sexually Active? No [email or web address] Information not available 11/24/2023 Do You Have Smoke And Carbon Monoxide Detectors In Your Home? Yes MIGRATION.0301 [id number] Information not available 06/26/2022 At What Age Did You Start Smoking Tobacco? 26 MIGRATION.0301 172966 Information not available 06/26/2022 Are You Passively Exposed To Smoke? No [email or web address] Information not available 11/24/2023 Are There Any Smokers In Your House? No MIGRATION.0301 536271 Information not available 06/26/2022 How Much Tobacco Do You Smoke? 0.5 PPD MIGRATION.0301 424176 Information not available 06/26/2022 What Types Of Sporting Activities Do You Participate In? Rides Electric Bike With Pedal Assist [email or web address] Information not available 11/24/2023 Do You Use Sunscreen Routinely? No MIGRATION.0301 925377 Information not available 06/26/2022 Has Tobacco Cessation Counseling Been Provided? Yes Ready To Quit, Stop Smoking Pamphlets Provided 03/06/21 MIGRATION.0301 [id number] Information not available 06/26/2022 On What Date Was Tobacco Cessation Counseling Provided? 07/04/2021 MIGRATION.0301 [id number] Information not available 06/26/2022 How Many Years Have You Smoked Tobacco? 50 [email or web address] Information not available 07/15/2022 Have You Recently Traveled Abroad? No MIGRATION.0301 043694 Information not available 06/26/2022 Do You Have Difficulty Walking Or Climbing Stairs? No MIGRATION.0301 550768 Information not available 06/26/2022 Do You Have Any Dietary Restrictions? No MIGRATION.0301 904767 Information not available 06/26/2022 How Many Days In The Past Year Have You Consumed 5 Or More Drinks? 0 [email or web address] Information not available 11/24/2023 Sex: Male Functional Status Question Answer Note LastModified by [employer] Details LastModified Time Do you use any illicit or recreational drugs? No MIGRATION.4820701 026 Information not available 06/26/2022 Do you or have you ever used any other forms of tobacco or nicotine? No [email or web address] Information not available 11/24/2023 What is your level of alcohol consumption? Occasional MIGRATION.6896431 026 Information not available 06/26/2022 Are you currently employed? No [email or web address] Information not available 11/24/2023 Do you have transportation difficulties? No MIGRATION.2742129 026 Information not available 06/26/2022 Are you able to walk? YESWOREST MIGRATION.3208095 026 Information not available 06/26/2022 Do you have difficulty doing errands alone? No MIGRATION.3024412 026 Information not available 06/26/2022 Are you able to care for yourself? Yes MIGRATION.0603495 026 Information not available 06/26/2022 What is your occupation? Retired MIGRATION.6426827 026 Information not available 06/26/2022 Do you have difficulty dressing or bathing? No MIGRATION.7614716 026 Information not available 06/26/2022 What is your exercise level? Occasional [email or web address] Information not available 11/24/2023 Mental Status Question Answer Note LastModified by Organizat ion Details LastModified Time Do you feel stressed (tense, restless, nervous, or anxious, or unable to sleep at night)? MP3838-2 MIGRATION.89505603 26 Information not available 06/26/2022 Do you have difficulty concentrating, remembering or making decisions? No MIGRATION.71209346 26 Information not available 06/26/2022 Family History Relationship Description Onset Age of this Age Resolved Age Notes LastModified by Organization Details LastModified Time Sister Malignant neoplastic disease MIGRATION.184 [id number] Not available 06/26/2022 05:05:28 Father Heart disease MIGRATION.873 [id number] Not available 06/26/2022 05:05:28 Medical History No medical history recorded. Immunizations Vaccine Type Date Status Note Provider Nam e and Address Organization Details Recorded Time SARS-COV-2 (COVID-19) vaccine, UNSPECIFIED 1 completed Not Available [facility] 06/26/2022 05:21:15 SARS-COV-2 (COVID-19) vaccine, UNSPECIFIED 1 completed Not Available [facility] 06/26/2022 05:21:15 Influenza, high-dose, quadrivalent, PF 0 completed Not Available [facility] 06/26/2022 05:21:16 pneumococcal polysaccharide PPV23 9 completed Not Available [facility] 06/26/2022 05:21:16 Pneumococcal conjugate PCV 13 7 completed Not Available [facility] 06/26/2022 05:21:16 Past Encounters Encounter ID Performer Location Encounter Start Date Encounter Closed Date Diagnosis/Indication Diagnosis SNOMED-CT Code Diagnosis ICD10 Code Diagnosis Note [id number] Lisa Hernadez MD [facility] [address] [place] [address] 11/02/2020 00:00:00 11/02/2020 14:40:33 [id number] Lisa Hernadez MD [facility] [address] [place] [address] 03/06/2021 00:00:00 03/06/2021 17:42:40 [id number] Lisa Hernadez MD [facility] [address] [address] 07/04/2021 00:00:00 07/04/2021 14:53:00 [id number] Lisa Hernadez MD [facility] [address] [address] 11/07/2021 00:00:00 11/07/2021 14:18:48 [id number] Lisa Hernadez MD [facility] [address] [address] 03/14/2022 00:00:00 03/14/2022 14:18:28 [id number] Steve Spencer MD [facility] [address] [address] 03/19/2022 00:00:00 03/19/2022 17:21:19 [id number] Lisa Hernadez MD [facility] [address] [address] 07/15/2022 09:55:04 07/15/2022 10:49:12 Essential hypertension 44705105 I10 under control Depressive disorder 3548 9007 F32.9 stable with meds Gastroesop hageal reflux disease 020174247 K21.9 symptoms are better with meds Smoker 77625660 F17.210 advised to quit. Fisher's esophagus 3029 24953 K22.70 EGD- 08/2018- Dr. Valenzuela, no more seen Benign pro static hyperplasia 752160838 N40.1 Better Multiple n odules of lung 691784508 R91.8 PET- 03/2022 Adult heal th examination 403056134 Z00.00 Colonoscop y 2018-Dr. ValenzuelaPSA- re vnar - 12/04/2016 Pneumovax - 04/14/2019 LDCT- 01/2020 - Does not usually getCOVID- 06/21/20, 07/19/20 Screening for disorder 512962845 Z13.9 [id number] Lisa Hernadez MD [facility] Internal [facility] [address] [facility] [place] [address] 11/14/2022 09:41:50 11/14/2022 10:07:31 Essential hypertension 48970504 I10 under control Depressive disorder 3548 9007 F32.9 under control Gastroesop hageal reflux disease 360722693 K21.9 symptoms are better with meds Smoker 49285340 F17.210 advised to quit. has cut down Fisher's esophagus 3029 31715 K22.70 EGD- 08/2018- Dr. Valenzuela, no more seen , will get EGD nxt year in 2023 Benign pro static hyperplasia 707207482 N40.1 Better Multiple n odules of lung 729174126 R91.8 PET- 03/2022, LDCT next time Adult heal th examination 700711784 Z00.00 Colonoscop y 2019-Dr. Oliveira- re vnar - 12/04/2016 Pneumovax - 04/14/2019 LDCT- 01/2020 - Does not usually getCOVID- 06/21/20, 07/19/20 [id number] Lisa Hernadez MD [facility] Internal [facility] [address] [facility] [place] [address] 03/17/2023 09:46:21 03/17/2023 10:26:45 Depressive disorder 57368871 F32.9 under control Gastroesop hageal reflux disease 881785541 K21.9 symptoms are better with meds Smoker 23638408 F17.210 advised to quit. has cut down Fisher's esophagus 3029 95459 K22.70 EGD- 08/2018- Dr. Valenzuela, no more seen , will get EGD nxt year in 2023 Benign pro static hyperplasia 864234903 N40.1 Better Multiple n odules of lung 906560421 R91.8 PET- 03/2022, LDCT tomorrow Adult heal th examination 056529144 Z00.00 Colonoscop y 2019-Dr. Oliveira- 02/2022, next timeprevna r 13- 12/04/2016 Pneumovax - 04/14/2019 LDCT- 01/2020 - Does not usually getCOVID- 06/21/20, 07/19/20 Essential hypertension 88810697 I10 under control [id number] Lisa Hernadez MD [facility] Internal [facility] [address] [facility] [place] [address] 07/16/2023 09:44:01 07/16/2023 10:36:55 Depressive disorder 12191570 F32.9 under control Gastroesop hageal reflux disease 042768134 K21.9 symptoms are better with meds Smoker 40726850 F17.210 advised to quit. has cut down Fisher's esophagus 3029 59569 K22.70 EGD- 08/2018- Dr. Valenzuela, no more seen , Benign pro static hyperplasia 326114000 N40.1 Better Multiple n odules of lung 391176703 R91.8 PET- 03/2022, LDCT ordered Adult heal th examination 806396671 Z00.00 Colonoscop y 2018-Dr. Oliveira- 02/2022, next timeprevna r 13- 12/04/2016 Pneumovax - 04/14/2019 LDCT- 01/2020 - Does not usually getCOVID- 06/21/20, 07/19/20 Essential hypertension 18226351 I10 under control Screening for malignant neoplasm of prostate 940112028 Z12.5 [id number] Lisa Hernadez MD [facility] Internal [facility] [address] [place] [address] 11/24/2023 11:44:17 11/24/2023 13:59:21 Depressive disorder 29550214 F32.9 under control Essential hypertension 53889514 I10 under control Gastroesop hageal reflux disease 530637634 K21.9 symptoms are better with meds Smoker 84181467 F17.210 advised to quit. has cut down, will reorder LDCT Fisher's esophagus 3029 53757 K22.70 EGD- 08/2018- Dr. Valenzuela, Benign pro static hyperplasia 609550028 N40.1 Better Multiple n odules of lung 378950486 R91.8 PET- 03/2022, LDCT ordered Adult heal th examination 073556271 Z00.00 Colonoscop y 2019-Dr. Oliveira- 07/16/23Pr evnar - 12/04/2016 Pneumovax - 04/14/2019 LDCT- 03/12/2022 - ORDEREDFLU 01/2020 - Does not usually getCOVID- 06/21/20, 07/19/20 Nicotine dependence 5629 4008 F17.200 Screening for disorder 068763804 Z13.9 [id number] Lisa Hernadez MD [facility] [address] [place] [address] 05/25/2024 12:12:25 05/25/2024 12:37:18 Essential hypertension 47854147 I10 under control Depressive disorder 3548 9007 F32.9 under control Gastroesop hageal reflux disease 042749145 K21.9 symptoms are better with meds Smoker 80974948 F17.210 advised to quit. Fisher's esophagus 3029 17648 K22.70 EGD- 08/2018- Dr. Valenzuela, Benign pro static hyperplasia 183383659 N40.1 Better Multiple n odules of lung 344054255 R91.8 PET- 03/2022, stable Adult heal th examination 503600360 Z00.00 Colonoscop y 2019-Dr. Oliveira- 07/16/23Pr evnar - 12/04/2016 Pneumovax - 04/14/2019 LDCT- 12/02/2023 FLU- 01/2020 - Does not usually getCOVID- 06/21/20, 07/19/20 Dyspnea 433849122 R06.00 most likely copd Chronic ob structive pulmonary disease 32590033 J44.9 start [facility] [id number] Lisa Hernadez MD [facility] [address] [facility] [place] [address] 09/23/2024 14:44:33 09/23/2024 15:43:18 Essential hypertension [id number] I10 under control Depressive disorder 3548 9007 F32.9 under control Gastroesop hageal reflux disease 351670200 K21.9 symptoms are better with meds Smoker [id number] F17.210 advised to quit. Fisher's esophagus 3029 50266 K22.70 EGD- 08/2018- Dr. Valenzuela, Benign pro static hyperplasia [id number] N40.1 Better Multiple n odules of lung 972815390 R91.8 PET- 03/2022, stable Adult heal th examination 932407083 Z00.00 Colonoscop y 2019-Dr. ValenzuelaPSA- 07/16/23Pr evnar 13- 12/04/2016 Pneumovax - 04/14/2019 LDCT- 12/02/2023 FLU- 01/2020 - Does not usually getCOVID- 06/21/20, 07/19/20 Dyspnea 422616949 R06.00 most likely copd Chronic ob structive pulmonary disease 12806914 J44.9 better Screening for malignant neoplasm of prostate 699472812 Z12.5 Health Concerns Section Related Observation LastModified by Organization Detai ls LastModified Time None Recorded Concern Status LastModified by Organization Details LastModified Time None Recorded Advance Directives Directive N: Payers Encounter Date Sequence Insurance Name Policy Number Policy Call Covered Member ID Call Member ID Guarantor Name 03/17/2023 1 [facility] (MEDICARE REPLACEMENT/AD VANTAGE - PPO) [id number] Steve Washington [id number] Steve Washington 03/17/2023 2 [place] MED[place]ARE OR MEDICARE REPLACEMENT PRIMARY) Steve Washington [id number] Steve Washington 07/16/2023 1 [facility] (MEDICARE REPLACEMENT/AD VANTAGE - PPO) [id number] Steve Washington [id number] Steve Washington 07/16/2023 2 [place]IC[place] REPLACEMENT PRIMARY) Steve Washington [id number] Steve Washington 11/24/2023 1 [facility] (MEDICARE REPLACEMENT/AD VANTAGE - PPO) [id number] Steve Washington [id number] Steve Washington 11/24/2023 2 [place] MEDICARE REPLACEMENT PRIMARY) Steve Washington [id number] Steve Washington 05/25/2024 1 [facility] (MEDICARE REPLACEMENT/AD VANTAGE - PPO) [id number] Steve Soria Luda [id number] Steve Luda 05/25/2024 2 [place] OR MEDICARE REPLACEMENT PRIMARY) Steve Luda [id number] Steve Luda 09/23/2024 1 [facility] (MEDICARE REPLACEMENT/AD VANTAGE - PPO) [id number] Steve Soria Luda [id number] Steve Washington 09/23/2024 2 [place] OR MEDICARE REPLACEMENT PRIMARY) Steve Luda [id number] Steve Washington Notes Date Note Type Note Provider Name and Address Organization Details Recorded Time 03/17/2023 text/html Pt is here for 4 month f/u. Pt states he has been getting muscle spasms in calves over the past month, compliant to medications, no side affects, here for follow up. HTN- controlled with medsMeds- Metoprolol ER 50 mg daily Hyperlipidemia- watching diet, on meds, labs 11/17Meds- Rosuvastatin 40 mg dailyGERD- on meds and is betterMeds- Pantoprazole 40 mg daily Smoker-has smoked for 30 yrs, has cut down Lung nodule - getting bigger, PET 03/19, benign, needs LDCT tomorrow Barretts without dysplasia in the past, last EGD 09/13 showed esophagitis and hiatal hernia only,Back pain- off and on radiates to the left leg, no weakness, MRI 2018 showed arthritis and bulging disc and foraminal stenosis. BPH- symptoms are better, psa nl 03/19Meds- Tamsulosin 0.4 mg dailyDepression- on med, symptoms are under control, sleeps fine, no anxietyMeds- Bupropion xl 150 mg q Lisa Hernadez MD [address] [facility], [facility] [address], [place], [address], [place] [employer] 03/17/2023 10:24:04 07/16/2023 text/html Pt is here for 4 month f/u. compliant to medications, no side affects, here for follow up. HTN- controlled with medsMeds- Metoprolol ER 50 mg daily Hyperlipidemia- watching diet, on meds, labs 11/17Meds- Rosuvastatin 40 mg dailyGERD- on meds and is betterMeds- Pantoprazole 40 mg daily Smoker-has smoked for 30 yrs, has cut down , needs Lung nodule - getting bigger, PET 03/19, benign, needs LDCT tomorrow Barretts without dysplasia in the past, last EGD 09/13 showed esophagitis and hiatal hernia only, EGD dueBack pain- off and on radiates to the left leg, no weakness, MRI 2018 showed arthritis and bulging disc and foraminal stenosis. BPH- symptoms are better, psa nl 03/19, dueMeds- Tamsulosin 0.4 mg dailyDepression- on med, symptoms are under control, sleeps fine, no anxietyMeds- Bupropion xl 150 mg q Lisa Hernadez MD [address], [place], [address], [employer] 07/16/2023 10:28:50 11/24/2023 text/html Pt is here for 4 month f/u. PT IS FASTING Medicare wellness HTN- controlled with medsMeds- Metoprolol ER 50 mg daily Hyperlipidemia- watching diet, on meds, labs dueMeds- Rosuvastatin 40 mg dailyGERD- on meds and is better, needs it dailyMeds- Pantoprazole 40 mg daily Smoker-has smoked for 30 yrs, has cut down to 1/2 ppd , needs LDCT, was ordered Lung nodule - getting bigger, PET 03/19, benign, needs LDCT had to cancel due to bad head cold and never rescheduled Barretts without dysplasia in the past, last EGD 09/13 showed esophagitis and hiatal hernia only, EGD dueBack pain- off and on radiates to the left leg, no weakness, MRI 2018 showed arthritis and bulging disc and foraminal stenosis. BPH- symptoms are better with meds, nocturia x 1 at nightMeds- Tamsulosin 0.4 mg dailyDepression- on med, symptoms are under control, sleeps fine, no anxietyMeds- Bupropion xl 150 mg q Obesity- Has gained 4 lbs Lisa Hernadez MD [address], [place], [address], [employer] 11/24/2023 17:00:05/25/2024 text/html Pt is here for 4 month f/u. PT IS FASTINGPT IS NOT FASTING ( [facility] ) HTN- controlled with medsMeds- Metoprolol ER 50 mg daily Hyperlipidemia- watching diet, on meds, labs in 11/18Meds- Rosuvastatin 40 mg dailyGERD- on meds and is better, needs it dailyMeds- Pantoprazole 40 mg daily Smoker-has smoked for 30 yrs, has cut down to 1/2 ppd ,c/p sob on walking, chest congestion, some wheezing Lung nodule - getting bigger, PET 03/19, benign, Last LDCT- 12/02/2023, no change Barretts without dysplasia in the past, last EGD 09/13 showed esophagitis and hiatal hernia only, EGD dueBack pain- off and on radiates to the left leg, no weakness, MRI 2018 showed arthritis and bulging disc and foraminal stenosis. BPH- symptoms are better with meds, nocturia x 1 at nightMeds- Tamsulosin 0.4 mg dailyDepression- on med, symptoms are under control, sleeps fine, no anxiety symptomsMeds- Bupropion XL 150 mg daily Obesity- Has lost 2 lbs Lisa Hernadez MD [address] [facility], [facility] [address], [place], [address], [facility] [employer] 05/25/2024 12:33:18 09/23/2024 text/html Pt is here for 4 month f/u. PT IS FASTINGPT IS FASTING ( [facility] ) HTN- controlled with medsMeds- Metoprolol ER 50 mg daily Hyperlipidemia- watching diet, on meds, labs in 11/18 goodMeds- Rosuvastatin 40 mg dailyGERD- on meds and is better, needs it dailyMeds- Pantoprazole 40 mg daily Smoker-has smoked for 30 yrs, has cut down to 1/2 ppd , c/p sob on walking, chest congestion, wheezing SOB- Feeling better since started on Breztri, NEVER SCHEDULED THE PFTUses inhalers and has been helping- Needs refills Lung nodule - getting bigger, PET 03/19, benign, Last LDCT- 12/02/2023, no change Barretts without dysplasia in the past, last EGD 09/13 showed esophagitis and hiatal hernia only, EGD due, HAS BEEN ORDERED LAST YEAR , DID NOT GET, WILLINGBack pain- off and on radiates to the left leg, no weakness, MRI 2017 showed arthritis and bulging disc and foraminal stenosis. BPH- symptoms are better with meds, nocturia x 1 at nightMeds- Tamsulosin 0.4 mg dailyDepression- on med, symptoms are under control, sleeps fine, no anxiety symptomsMeds- Bupropion XL 150 mg daily Obesity- Has lost 3 lbs Lisa Hernadez MD [address] [facility], [facility] [address], [place], [address], [place] [facility] [employer] [facility] [employer] 09/23/2024 15:25:07
--- NOTE | 2024-10-07 12:10 | WPDPFTINT ---
PFT Procedure Performed PFT Procedure Performed Plethysmography (Lung Vol) Diffusing Cap (DLCO) Flow Vol Loop Spirometry w/o Bronchodil PFT Interpretation This is a pulmonary function test with spirometry, plethysmography and diffusing capacity. The test was performed and results interpreted in accordance with the 2019 and 2005 ATS/ERS Task Force guidelines respectively using the Global Lung Function Initiative-2012 reference equations. Patient demonstrated good effort and cooperation. Reproducibility criteria were met. The quality of the spirometry maneuver was Grade A. Findings: Spirometry: There is decreased maximal expiratory airflow at all lung volumes with a concave expiratory flow tracing. The contour the inspiratory flow tracing is normal. The FVC is 2.41 L, 65% predicted. The FEV1 is 1.42 L, 51% predicted. The FEV1: FVC ratio is 59%. Plethysmography: Total lung capacity is 6.84 L, 107% predicted. The functional residual capacity is 4.34 L, 128% predicted. The residual volume is 4.05 L, 173% predicted. The residual volume: Total lung capacity ratio is 59%. Diffusing capacity: The diffusing capacity unadjusted for hemoglobin and carboxyhemoglobin is 14.1, 58% predicted. The diffusing capacity adjusted for alveolar volume is 2.64, 66% predicted. Impression: There is a moderately severe obstructive abnormality. The increase in residual volume to total lung volume ratio is consistent with hyperinflation from an obstructive abnormality. The diffusing capacity unadjusted for hemoglobin and carboxyhemoglobin is moderately decreased and remains mildly decreased when adjusted for alveolar volume. There are no prior studies for comparison
== END 2024-10-06 12:53 | disposition home or self-care (01) ==
PROVIDERS: PCP Family Medicine; Visit Provider Internal Medicine
DX: J44.9 Chronic obstructive pulmonary disease, unspecified (principal)
CPT/HCPCS: 94375; 94726; 94729